=== PATIENT | female | born 1985 | race Caucasian/White ===

== ENCOUNTER 2017-07-13 05:29 | Emergency (ER) | payer BC ==
[~2017-07-13] VITALS: Ht 167.6 cm; Wt 104.4 kg
[2017-07-13] MEDS ORDERED: XOPENEX HFA IN (05:54)
[2017-07-13] MEDS ORDERED: ZPAK PO (05:55)
[2017-07-13] MEDS ORDERED: HYDROCHLOROT25 MG PO (06:43)
[2017-07-13 06:47] VITALS: BP 165/105
== END 2017-07-13 06:50 | disposition home or self-care (01) | DRG 305 ==
LOC: ED 05:29
DX: I10 Essential (primary) hypertension (principal)

== ENCOUNTER 2019-05-14 12:16 | Emergency (ER) | payer BC ==
[~2019-05-14] VITALS: Ht 167.6 cm; Wt 101.0 kg
[~2019-05-14 12:16] MED LIST: HYDROCHLOROT25 MG PO; XOPENEX HFA IN; ZPAK PO
[2019-05-14 13:02] LABS: HEMATOCRIT 41.7 % (37.0-47.0); HEMOGLOBIN 13.9 g/dl (12.0-16.0); IMMATURE GRANULOCYTES 0.9 % (0.0-5.0); MEAN CELL VOLUME 80.7 fL CALC (80.0-100.0); MEAN CORPUSCULAR HGB 26.9 pG CALC (26.0-32.0); MEAN CORPUSCULAR HGB CONC 33.3 g/L CALC (32.0-36.0); NEUT# 6.65 thou/uL (2.00-7.15); RED BLOOD COUNT 5.17 mill/uL (4.20-5.60)
[2019-05-14 13:28] LABS: ANION GAP 18 (6-22 (CALC)); BUN 12 mg/dL (7-17); BUN/CREATININE RATIO 22 (12-20 (CALC)); CARBON DIOXIDE 21 mmol/l (22-30); CHLORIDE 105 mmol/l (95-108); CREATININE 0.5 mg/dL (0.5-1.0); GFR > 60 ML/MIN (>=60 (CALC)); GFR FOR AFR.AMER. > 60 ML/MIN (>=60 (CALC)); POTASSIUM 3.8 mmol/l (3.5-5.1); SODIUM 140 mmol/l (137-146)
[2019-05-14] MEDS ORDERED: MONTELUKAST SOD10 MG PO (13:49)
[2019-05-14 14:19] VITALS: BP 178/84
[2019-05-14] MEDS ORDERED: NORVASC2.5 M1 PO (14:21)
== END 2019-05-14 14:49 | disposition home or self-care (01) | DRG 305 ==
LOC: ED 12:16
PROVIDERS: Family Medicine
DX: I10 Essential (primary) hypertension (principal); R73.9 Hyperglycemia, unspecified

== ENCOUNTER 2019-05-16 12:25 | Emergency (ER) | payer BC ==
[~2019-05-16] VITALS: Ht 167.6 cm; Wt 100.0 kg
[~2019-05-16 12:25] MED LIST changes: +MONTELUKAST SOD10 MG PO; +NORVASC2.5 M1 PO
[2019-05-16] MEDS ORDERED: NORVASC5 M1 PO (12:51)
[2019-05-16] MEDS ORDERED: VISTARIL 50MG C50 M1 PO (15:02)
[2019-05-16 15:07] VITALS: BP 175/103
== END 2019-05-16 15:07 | disposition home or self-care (01) | DRG 305 ==
LOC: ED 12:25
DX: I10 Essential (primary) hypertension (principal)